=== PATIENT | female | born 1970 | race Caucasian/White ===

== ENCOUNTER → 2016-12-15 | Outpatient (CLI) | payer BC ==
--- NOTE | 2016-12-15 12:48 | MM ---
Reason for exam: screening (asymptomatic). Last mammogram was performed 1 year and 6 months ago. Physical Findings: A clinical breast exam by your physician is recommended on an annual basis and results should be correlated with mammographic findings. MG Screening Mammo w CAD Bilateral CC and MLO view(s) were taken. Prior study comparison: October 11, 2013, bilateral MG screening mammo w CAD. There are scattered fibroglandular densities. There is no discrete abnormality. ASSESSMENT: Negative, BI-RAD 1 RECOMMENDATION: Routine screening mammogram of both breasts in 1 year.
== END | disposition home or self-care (01) ==
LOC: RADMAMWWP 08:56
PROVIDERS: ATTEND Obstetrics & Gynecology
DX: Z12.31 Encounter for screening mammogram for malignant neoplasm of breast (principal)

== ENCOUNTER → 2017-08-31 | Outpatient (CLI) | payer BC ==
[2017-09-01 02:05] LABS: Alternaria alternata IgE <0.10 kU/L; Birch IgE <0.10 kU/L; Cat Epith & Dander IgE <0.10 kU/L; Cockroach IgE <0.10 kU/L; Dermato. farinae IgE <0.10 kU/L; Dog Dander IgE <0.10 kU/L; Elm IgE <0.10 kU/L; Maple (Box Elder) IgE <0.10 kU/L; Oak IgE <0.10 kU/L; Ragweed,Common IgE <0.10 kU/L; Red Top (Bentgrass) IgE <0.10 kU/L
== END | disposition home or self-care (01) ==
LOC: LABWHC1 15:26
PROVIDERS: ATTEND Internal Medicine
DX: J30.9 Allergic rhinitis, unspecified (principal); R05 Cough
CPT/HCPCS: 36415; 82785; 86003

== ENCOUNTER → 2019-03-22 | Outpatient (CLI) | payer OTHER ==
--- NOTE | 2019-03-23 13:32 | MM ---
Reason for exam: screening (asymptomatic). Last mammogram was performed 1 year and 1 month ago. Physical Findings: A clinical breast exam by your physician is recommended on an annual basis and results should be correlated with mammographic findings. MG 3D Screening Mammo W/Cad Bilateral CC and MLO view(s) were taken. Prior study comparison: February 11, 2018, bilateral MG screening mammo w CAD. December 15, 2016, bilateral MG screening mammo w CAD. There are scattered fibroglandular densities. There are benign appearing round calcifications bilaterally. There is no discrete abnormality. ASSESSMENT: Benign, BI-RAD 2 RECOMMENDATION: Routine screening mammogram of both breasts in 1 year.
== END | disposition home or self-care (01) ==
LOC: RADMAMWWP 08:00
PROVIDERS: ATTEND Obstetrics & Gynecology
DX: Z12.31 Encounter for screening mammogram for malignant neoplasm of breast (principal)
CPT/HCPCS: 77063; 77067

== ENCOUNTER → 2020-09-06 | Outpatient (CLI) | payer OTHER ==
--- NOTE | 2020-09-10 08:31 | MM ---
Reason for exam: screening (asymptomatic). Last mammogram was performed 1 year and 6 months ago. Physical Findings: A clinical breast exam by your physician is recommended on an annual basis and results should be correlated with mammographic findings. MG 3D Screening Mammo W/Cad Bilateral CC and MLO view(s) were taken. Prior study comparison: March 22, 2019, bilateral MG 3d screening mammo w/cad. February 11, 2018, bilateral MG screening mammo w CAD. The breast tissue is heterogeneously dense. This may lower the sensitivity of mammography. Superior posterior asymmetric density left MLO appears new and incompletely disperses on 3D. ASSESSMENT: Incomplete: need additional imaging evaluation, BI-RAD 0 RECOMMENDATION: Special view mammogram of the left breast. (3D) If lesion persists on supplemental views, image directed ultrasound is recommended. [facility] will attempt to contact patient to return for supplemental views and ultrasound if indicated.
== END | disposition home or self-care (01) ==
LOC: RADMAMWWP 13:12
PROVIDERS: ATTEND Obstetrics & Gynecology
DX: Z12.31 Encounter for screening mammogram for malignant neoplasm of breast (principal)
CPT/HCPCS: 77063; 77067

== ENCOUNTER → 2020-09-17 | Outpatient (CLI) | payer OTHER ==
--- NOTE | 2020-09-18 10:06 | MM ---
Reason for exam: additional evaluation requested from abnormal screening. Last mammogram was performed less than 1 month ago. Physical Findings: Nurse did not find any significant physical abnormalities on exam. MG 3D Work Up W/Cad LT Spot compression MLO, LM, and XCCL view(s) were taken of the left breast. Prior study comparison: September 06, 2020, bilateral MG 3d screening mammo w/cad. March 22, 2019, bilateral MG 3d screening mammo w/cad. There are scattered fibroglandular densities. No distinct lesion persists on additional views. These results were verbally communicated with the patient and result sheet given to the patient on 09/17/20. ASSESSMENT: Benign, BI-RAD 2 RECOMMENDATION: Return to routine screening mammogram schedule for both breasts.
== END | disposition home or self-care (01) ==
LOC: RADMAMWWP 14:58
PROVIDERS: ATTEND Obstetrics & Gynecology
DX: R92.8 Other abnormal and inconclusive findings on diagnostic imaging of breast (principal)
CPT/HCPCS: 77061; 77065

== ENCOUNTER → 2021-02-19 | Outpatient (CLI) | payer OTHER ==
--- NOTE | 2021-02-20 07:48 | US ---
EXAMINATION TYPE: US axilla RT DATE OF EXAM: 02/19/2021 COMPARISON: NONE CLINICAL HISTORY: I89.1 Lymphangitis. Lymphangitis. Pain in right arm pit. No abnormalities seen at this time within the right axilla. Normal color-flow vascular structures are evident. IMPRESSION: 1. No suspicious ultrasound abnormality right axilla
== END | disposition home or self-care (01) ==
LOC: RADUSWWP 15:59
PROVIDERS: ATTEND Internal Medicine
DX: I89.1 Lymphangitis (principal); M79.601 Pain in right arm

== ENCOUNTER → 2021-10-30 | Outpatient (CLI) | payer OTHER ==
--- NOTE | 2021-11-01 07:59 | BD ---
EXAMINATION TYPE: Axial Bone Density DATE OF EXAM: 10/30/2021 COMPARISON: NONE CLINICAL HISTORY: 51 years year old Female. ICD-10 CODE: Z78.0 ASYMPTOMATIC MENOPAUSAL STATE Height: 60 Weight: 176 FRAX RISK QUESTIONS: Alcohol (3 or more units per day): NO Family History (Parent hip fracture): NO Glucocorticoids (More than 3mos): NO History of Fracture in Adulthood: NO Secondary Osteoporosis: 1. Type 1 Diabetes: NO 2. Hyperthyroidism: NO 3. Menopause before 45: NO 4. Malnutrition: NO 5. Chronic liver disease: NO Rheumatoid Arthritis: NO Current Tobacco Use: NO RISK FACTORS HISTORY OF: Hip Fracture (Right/Left): NO Spine Fracture: YES T6-7 When: 17 YEARS OLD History of Wrist Fracture: NO Surgery to Spine/Hip(right/left)/Wrist (right/left): NO Family History of Osteoporosis: NO Active: YES Diet low in dairy products/other sources of calcium: NO Postmenopausal woman: NO If Premenopausal, do you have irregular periods: YES Take estrogen and/or progesterone medications: NO Lost more than 2 inches in height since high school: NO Frequent falls: NO Poor Health: NO Hyperparathyroidism: NO Adrenal Insufficiency: NO MEDICATIONS: Prednisone or other steroids: NO Thyroid Medications: NO Osteoporosis Medications: NO Additional Medications: REFLUX MEDS, BP MEDS, DEPRESSION MEDS, VIT D, MULTI VIT. Additional History: EXAM MEASUREMENTS: Bone mineral densitometry was performed using the [employer] System. Bone mineral density as measured about the Lumbar spine is: ----- L1-L4(G/cm2): 1.170 T Score Values are as follows: ----- L1: 0.1 ----- L2: -0.1 ----- L3: -0.8 ----- L4: 0.3 ----- L1-L4: -0.1 BASELINE STUDY Bone mineral density about the R hip (g/cm2): 0.996 Bone mineral density about the L hip (g/cm2): 1.066 T Score values are as follows: -----R Neck:-0.3 -----L Neck: 0.2 -----R Total: 0.8 -----L Total: 1.0 BASELINE STUDY FRAX%s: The graph provided illustrates a 3.9% chance for a major osteoporotic fx and a 0.1% chance fo r the hips probability for fx in 10 years time. IMPRESSION: Normal (Values between +1 and -1 indicate normal bone mass). Consider repeating this study in 5 year s or sooner if there is some new clinical indication. NOTE: T-SCORE=SD OF THE YOUNG ADULT MEAN.
== END | disposition home or self-care (01) ==
LOC: RADBDWWP 16:07
PROVIDERS: ATTEND Obstetrics & Gynecology
DX: Z78.0 Asymptomatic menopausal state (principal)
CPT/HCPCS: 77080

== ENCOUNTER → 2021-11-21 | Outpatient (CLI) | payer OTHER ==
[2021-11-21 13:01] VITALS: BP 155/92; PULSE 66; RESP 16; TEMP 98.4
--- NOTE | 2021-11-21 13:20 | P.GSHP ---
History of Present Illness H&P Date: 11/21/21 Chief Complaint: right breast and axillary pain Olga is a 51 year old white female seen in consultation for Dr. Shabazz with a complaint of persistant pain in her right axilla following her COVID booster. She does also complain of a pinched nerve in her neck for which she had physical therapy. It seems to be improving. [place] [address]. This was benign BIRADS 2. [place] [address] which revealed benign-appearing right axillary lymph node. She is not complaining of any nipple discharge or skin changes. She is not complaining of any discrete lumps masses or nodules in either breast. She has not had any recent trauma or infection the breast. The discomfort has improved over the last several weeks. CAffine: 1 cup/day Nicotine: none hormones: BCP: when younger about 10 years chocolate: occasional Family history: mother: pancreatic cancer father: throat cancer paternal grandfather: cancer ?type Hormonal History: menarche: 12 breast fed: no, age at : 31 menpause: just starting: LMP spotting last month BCP: 10 years in the past Surgical history: Uterine ablation tubal Blepharoplasty Medical History: none broken back at 17 HTN Social History: nicotine: Patient wasn't never smoker but both of her parents smoked was she was growing up Alcohol:none drugs: none - Constitutional Constitutional: Denies chills, Denies fever - EENT Eyes: denies blurred vision, denies pain Ears: deny: decreased hearing, tinnitus Ears, nose, mouth and throat: Denies headache, Denies sore throat - Breasts Breasts: bilateral: as per HPI - Cardiovascular Cardiovascular: Denies chest pain, Denies shortness of breath - Respiratory Respiratory: Denies cough, Denies 7 - Gastrointestinal Gastrointestinal: Denies abdominal pain, Denies diarrhea, Denies nausea, Denies vomiting - Genitourinary (Female) Genitourinary: Reports kidney stones, Denies dysuria, Denies hematuria - Menstruation Comment: perimenopausal - Musculoskeletal Musculoskeletal: Reports myalgias - Integumentary Integumentary: Denies pruritus, Denies rash - Neurological Neurological: Denies numbness, Denies weakness - Psychiatric Psychiatric: Denies anxiety, Denies depression - Endocrine Endocrine: Denies fatigue, Denies weight change - Hematologic/Lymphatic Comment: none - Allergic/Immunologic Allergic/Immunologic: Reports seasonal allergies Past Medical History Past Medical History: GERD/Reflux, Hypertension History of Any Multi-Drug Resistant Organisms: None Reported Past Surgical History: Tubal Ligation Additional Past Surgical History / Comment(s): UTERINE ABLATION Past Anesthesia/Blood Transfusion Reactions: No Reported Reaction Past Psychological History: Anxiety Smoking Status: Never smoker Past Alcohol Use History: Occasional Past Drug Use History: None Reported - Past Family History Mother Family Medical History: Cancer Additional Family Medical History / Comment(s): LUNG AND PANCREATIC Father Family Medical History: Cancer Additional Family Medical History / Comment(s): ESOPHAGEAL Medications and Allergies Home Medications Medication Instructions Recorded Confirmed Type ALPRAZolam [Xanax] 0.25 mg PO HS PRN 01/30/15 11/21/21 History Omeprazole [PriLOSEC] 20 mg PO DAILY 01/30/15 11/21/21 History atenoloL [Tenormin] 50 mg PO DAILY 01/30/15 11/21/21 History Cetirizine HCl [Zyrtec] 0.5 mg PO DAILY 11/21/21 11/21/21 History buPROPion [Wellbutrin] 150 mg PO DAILY 11/21/21 11/21/21 History Allergies Allergy/AdvReac Type Severity Reaction Status Date / Time Penicillins Allergy Rash/Hives Verified 11/21/21 13:02 Sulfa (Sulfonamide Allergy Rash/Hives/ Verified 11/21/21 13:02 Antibiotics) DIFFICULTY WITH SWALLOWING Surgical - Exam Vital Signs Temp Pulse Resp BP Pulse Ox 98.4 F 66 16 155/92 98 11/21/21 12:57 11/21/21 12:57 11/21/21 12:57 11/21/21 12:57 11/21/21 12:57 BMI: 34.8 - General no distress - Eyes normal ocular movement - Neck trachea midline - Respiratory normal respiratory effort, clear to auscultation - Cardiovascular Rhythm: regular Heart Sounds: normal: S1, S2 - Abdomen Abdomen: soft - Integumentary normal turgor - Neurologic no disoriented, no combative - Musculoskeletal normal gait, normal posture - Psychiatric oriented to time, oriented to person, oriented to place, speech is normal, memory intact Breast Exam: BRA: 38C inspection: bilateral grade 3 ptosis palpation: right breast: Multi-positional exam no dominant masses or nodules of concern Right axilla: No adenopathy of concern Left breast: Multi-positional exam fibrocystic changes no dominant masses or nodules of concern Left axilla: No adenopathy of concern Results Mammogram and ultrasound results reviewed Assessment and Plan Assessment: Impression: Right axillary/chest wall pain following COVID booster; this has improved following physical therapy No radiographic abnormalities in the right breast or axilla of concern Nothing palpable on physical exam of concern and right breast or axilla Plan: Repeat bilateral mammogram in 1 year with physician exam at that time Continue physical therapy if the pain continues to be happy to see patient back again however at this time there is nothing which would warrant interventional biopsy Cc: Dr. Shabazz, Dr. Daily
== END ==
LOC: WWCWWP 12:47
PROVIDERS: ATTEND Surgery
DX: R07.89 Other chest pain (principal); I10 Essential (primary) hypertension; K21.9 Gastro-esophageal reflux disease without esophagitis; F41.9 Anxiety disorder, unspecified; Z88.0 Allergy status to penicillin; Z88.2 Allergy status to sulfonamides; Z79.899 Other long term (current) drug therapy

== ENCOUNTER → 2022-01-15 | Outpatient (CLI) | payer BC ==
--- NOTE | 2022-01-16 07:48 | XR ---
EXAMINATION TYPE: XR Hip Complete 2 views RT DATE OF EXAM: 01/15/2022 Comparison: None Clinical History: 51-year-old female M25.551,M54.31 Findings: Hip joint space is maintained. There may be mild degenerative spurring at the right SI joint. Right-s ided pelvic fluid ligaments. No acute fracture, subluxation, dislocation seen. Impression: There may be mild degenerative spurring at the right SI joint. Hip joint space is maintained. No acut e osseous abnormality seen.
--- NOTE | 2022-01-16 07:49 | XR ---
EXAMINATION TYPE: XR lumbosacral spine 5 views DATE OF EXAM: 01/15/2022 Comparison: None Clinical History: 51 year-old female right-sided pain, chronic lower back pain Findings: 5 lumbar type vertebral bodies. There is hypertrophic facet arthropathy in the lower lumbar spine. So mewhat short appearance to the pedicles on the lateral view could reflect underlying congenital spina l canal stenosis. Degenerative grade 1 anterolisthesis L4-L5. Trace grade 1 retrolisthesis L1-L2. Mil d degenerative disc disease with small Schmorl's nodes. Impression: 1. Hypertrophic facet arthropathy mid to lower lumbar spine with degenerative grade 1 anterolisthesis L4-L5. 2. Additional trace grade 1 retrolisthesis L1-L2. 3. Somewhat short appearance to the pedicles in the lower lumbar spine on the lateral view could refl ect an underlying congenital spinal canal narrowing. 4. No vertebral compression collapse.
== END | disposition home or self-care (01) ==
LOC: RADMRIMAIN 17:33
PROVIDERS: ATTEND Internal Medicine
DX: M43.16 Spondylolisthesis, lumbar region (principal); M99.73 Connective tissue and disc stenosis of intervertebral foramina of lumbar region; M47.816 Spondylosis without myelopathy or radiculopathy, lumbar region
CPT/HCPCS: 72110; 73502

== ENCOUNTER → 2022-08-29 | Outpatient (CLI) | payer BC ==
[2022-08-29 09:19] VITALS: BP 172/97; PULSE 62; RESP 17; TEMP 98.4
--- NOTE | 2022-08-29 09:28 | P.PN ---
Subjective Progress Note Date: 08/29/22 Principal diagnosis: right axillary pain right breast and axillary pain Olga is a 52-year-old white female seen initially in consultation for Dr. Shabazz with a complaint of pain in her right axilla following her Covid booster. She also complained of a pinched nerve in her neck for which she had physical therapy. That seemed to be improving. [place] [id number]. This was benign BIRADS 2. She then had an ultrasound of the right axilla on which revealed benign-appearing right axillary lymph nodes. The patient at this time is intermittent. There is a 3 when it is bothering her. It seems to radiate at times down onto the chest wall. At the age of 17 she had a fracture of her back between her shoulder blades. She works at a desk all day and there is some thought that the pain may be radiating from the area of prior fracture towards the area of the axilla. Patient does not feel any new lumps masses or nodules of concern in either breast or under her arms. CAffine: 1 cup/day Nicotine: none hormones: BCP: when younger about 10 years chocolate: occasional Family history: mother: pancreatic cancer father: throat cancer paternal grandfather: cancer ?type Hormonal History: menarche: 12 breast fed: no, age at : 31 menpause: just starting: LMP spotting last month BCP: 10 years in the past Surgical history: Uterine ablation tubal Blepharoplasty Medical History: broken back at 17 HTN Social History: nicotine: Patient wasn't never smoker but both of her parents smoked was she was growing up Alcohol:none drugs: none - Constitutional Constitutional: Denies chills, Denies fever - EENT Eyes: denies blurred vision, denies pain Ears: deny: decreased hearing, tinnitus Ears, nose, mouth and throat: Denies headache, Denies sore throat - Breasts Breasts: bilateral: as per HPI - Cardiovascular Cardiovascular: Denies chest pain, Denies shortness of breath - Respiratory Respiratory: Denies cough - Gastrointestinal Gastrointestinal: Denies abdominal pain, Denies diarrhea, Denies nausea, Denies vomiting - Genitourinary (Female) Genitourinary: Reports kidney stones, Denies dysuria, Denies hematuria - Menstruation Comment: perimenopausal - Musculoskeletal Musculoskeletal: Reports myalgias - Integumentary Integumentary: Denies pruritus, Denies rash - Neurological Neurological: Denies numbness, Denies weakness - Psychiatric Psychiatric: Denies anxiety, Denies depression - Endocrine Endocrine: Denies fatigue, Denies weight change - Hematologic/Lymphatic Comment: none - Allergic/Immunologic Allergic/Immunologic: Reports seasonal allergies Past Medical History Past Medical History: GERD/Reflux, Hypertension History of Any Multi-Drug Resistant Organisms: None Reported Past Surgical History: Tubal Ligation Additional Past Surgical History / Comment(s): UTERINE ABLATION Past Anesthesia/Blood Transfusion Reactions: No Reported Reaction Past Psychological History: Anxiety Smoking Status: Never smoker Past Alcohol Use History: Occasional Past Drug Use History: None Reported - Past Family History Mother Family Medical History: Cancer Additional Family Medical History / Comment(s): LUNG AND PANCREATIC Father Family Medical History: Cancer Additional Family Medical History / Comment(s): ESOPHAGEAL Medications and Allergies Home Medications Medication Instructions Recorded Confirmed Type ALPRAZolam [Xanax] 0.25 mg PO HS PRN 01/30/15 11/21/21 History Omeprazole [PriLOSEC] 20 mg PO DAILY 01/30/15 11/21/21 History atenoloL [Tenormin] 50 mg PO DAILY 01/30/15 11/21/21 History Cetirizine HCl [Zyrtec] 0.5 mg PO DAILY 11/21/21 11/21/21 History buPROPion [Wellbutrin] 150 mg PO DAILY 11/21/21 11/21/21 History Allergies Allergy/AdvReac Type Severity Reaction Status Date / Time Penicillins Allergy Rash/Hives Verified 11/21/21 13:02 Sulfa (Sulfonamide Allergy Rash/Hives/ Verified 11/21/21 13:02 Antibiotics) DIFFICULTY WITH SWALLOWING Objective - Vital Signs Vital signs: Intake & Output 08/28/22 08/29/22 08/29/22 18:59 06:59 18:59 Weight 78.018 kg - Constitutional General appearance: Present: cooperative - EENT Eyes: Present: EOMI ENT: Present: hearing grossly normal - Neck Neck: Present: normal ROM - Respiratory Respiratory: bilateral: CTA - Cardiovascular Rhythm: regular Heart sounds: normal: S1, S2 - Gastrointestinal General gastrointestinal: Present: soft - Integumentary Integumentary: Present: normal turgor - Musculoskeletal Musculoskeletal: Present: gait normal - Psychiatric Psychiatric: Present: A&O x's 3, appropriate affect, intact judgment & insight - Additional findings Additional findings: Breast Exam: BRA: 38C inspection: bilateral grade 3 ptosis palpation: right breast: Multi-positional exam no dominant masses or nodules of concern Right axilla: No adenopathy of concern Left breast: Multi-positional exam fibrocystic changes no dominant masses or nodules of concern Left axilla: No adenopathy of concern On examination of the right axilla there is tenderness to the muscle itself which appears to be musculoskeletal in nature possibly be radiating from her mid back. Assessment and Plan Assessment: Impression: We have discussed genetic testing and she is going to look into this Fibrocystic breast changes bilateral Right axillary discomfort has decreased and appears to be musculoskeletal in nature CC: Bilateral mammogram and repeat right axillary ultrasound and Patito with appointment at that time Genetic testing Follow-up sooner any questions or concerns Cc: Dr. Daily
== END ==
LOC: WWCWWP 08:41
PROVIDERS: ATTEND Surgery
DX: N60.11 Diffuse cystic mastopathy of right breast (principal); N60.12 Diffuse cystic mastopathy of left breast; I10 Essential (primary) hypertension; G93.89 Other specified disorders of brain; Z88.0 Allergy status to penicillin; Z88.2 Allergy status to sulfonamides; K21.9 Gastro-esophageal reflux disease without esophagitis; Z88.1 Allergy status to other antibiotic agents; Z80.0 Family history of malignant neoplasm of digestive organs; Z80.1 Family history of malignant neoplasm of trachea, bronchus and lung

== ENCOUNTER → 2022-10-20 | Outpatient (CLI) | payer BC ==
--- NOTE | 2022-10-20 09:38 | MM ---
Reason for Exam: Clinical finding. Last screening mammogram was performed 12 month(s) ago. Patient History: Menarche at age 12. First Full-Term at age 30. Late child-bearing (after 30). Postmenopausal. Risk Values: Cassidy 5 year model risk: 1.5%. NCI Lifetime model risk: 11.8%. Prior Study Comparison: 06/06/2015 Bilateral Screening Mammogram, [facility]. 12/15/2016 Bilateral Screening Mammogram, [facility]. 02/11/2018 Bilateral Screening Mammogram, [facility]. 03/22/2019 Bilateral Screening Mammogram, [facility]. 09/06/2020 Bilateral Screening Mammogram, [facility]. 09/17/2020 Left Diagnostic Mammogram, [facility]. 10/21/2021 Bilateral MG 3D diag mammo w/cad [facility], [facility]. Tissue Density: There are scattered fibroglandular densities. Findings: Analyzed By CAD. Pattern appears stable. There is a new density within the upper outer mid left breast. Under compression this area appears to disperse normally. Suspicious abnormality on the mediolateral not evident. Right breast appears stable. Focal asymmetry within the anterior right breast appears less suspicious on the current exam. An additional asymmetric density within the midportion of the right breast likewise appears smaller. Patient is scheduled for ultrasound right breast. No suspicious groups of microcalcifications, spiculated or lobular masses, architectural distortion or other secondary signs of malignancy are mammographically apparent. Overall Assessment: Benign, BI-RAD 2 Management: Screening Mammogram of both breasts in 1 year. A negative mammogram report should not preclude additional follow up of suspicious palpable abnormalities. Patient should continue monthly self breast exam. A clinical breast exam by your physician is recommended on an annual basis and results should be correlated with mammographic findings. Electronically signed and approved by: Elia Chapa D.O. Radiologis
--- NOTE | 2022-10-20 09:38 | USB ---
Reason for Exam: Clinical finding. Patient History: Menarche at age 12. First Full-Term at age 30. Late child-bearing (after 30). Postmenopausal. Risk Values: Cassidy 5 year model risk: 1.5%. NCI Lifetime model risk: 11.8%. Technique: Method: Targeted. Prior Study Comparison: 09/06/2020 Bilateral Screening Mammogram, [facility]. 09/17/2020 Left Diagnostic Mammogram, [facility]. 10/21/2021 Bilateral MG 3D diag mammo w/cad [facility], [facility]. Findings: The axilla of the left breast was scanned. No solid or cystic masses are identified. A benign stable appearing lymph node is present within the right axilla measuring 1.1 x 1.2 x 0.7 cm. No thickened cortex is evident. Overall Assessment: Benign, BI-RAD 2 Management: Screening Mammogram of both breasts in 1 year. A clinical breast exam by your physician is recommended on an annual basis and results should be correlated with mammographic findings. This exam should not preclude additional follow-up of suspicious palpable abnormalities. Results were given to the patient verbally at the time of exam. Electronically signed and approved by: Elia Chapa D.O. Radiologis
== END | disposition home or self-care (01) ==
LOC: RADMAMWWP 08:27
PROVIDERS: ATTEND Surgery
DX: R92.8 Other abnormal and inconclusive findings on diagnostic imaging of breast (principal); Z78.0 Asymptomatic menopausal state
CPT/HCPCS: 77062; 77066

== ENCOUNTER → 2022-10-23 | Outpatient (CLI) | payer BC ==
[2022-10-23 10:33] VITALS: BP 176/84; PULSE 57; RESP 12; TEMP 97.7
--- NOTE | 2022-10-23 10:51 | P.PN ---
Subjective Progress Note Date: 10/23/22 Principal diagnosis: Results of mammogram and ultrasound from [address]/fibrocystic breast changes right axillary pain right axillary pain right breast and axillary pain Olga is a 52-year-old white female seen initially in consultation for Dr. Shabazz with a complaint of pain in her right axilla following her Covid booster. She also complained of a pinched nerve in her neck for which she had physical therapy. That seemed to be improving. She had a bilateral screening mammogram [place] [address]. This was benign BIRADS 2. [place] [address] which revealed benign-appearing right axillary lymph nodes. The patient at this time is intermittent. There is a 3 when it is bothering her. It seems to radiate at times down onto the chest wall. At the age of 17 she had a fracture of her back between her shoulder blades. She works at a desk all day and there is some thought that the pain may be radiating from the area of prior fracture towards the area of the axilla. Patient does not feel any new lumps masses or nodules of concern in either breast or under her arms. The patient had a bilateral mammogram and left breast ultrasound on 10-20-22 which was BIRAD 2. The pain has improved in her axilla. It is intermittent in nature. At this time we [place] gone [place] [address]. She has declined an examination as it was just done on . CAffine: 1 cup/day Nicotine: none hormones: BCP: when younger about 10 years chocolate: occasional Family history: mother: pancreatic cancer father: throat cancer paternal grandfather: cancer ?type Hormonal History: menarche: 12 breast fed: no, age at : 31 menpause: just starting: LMP spotting last month BCP: 10 years in the past Surgical history: Uterine ablation tubal Blepharoplasty Medical History: broken back at 17 HTN Social History: nicotine: Patient wasn't never smoker but both of her parents smoked was she was growing up Alcohol:none drugs: none - Constitutional Constitutional: Denies chills, Denies fever - EENT Eyes: denies blurred vision, denies pain Ears: deny: decreased hearing, tinnitus Ears, nose, mouth and throat: Denies headache, Denies sore throat - Breasts Breasts: bilateral: as per HPI - Cardiovascular Cardiovascular: Denies chest pain, Denies shortness of breath - Respiratory Respiratory: Denies cough - Gastrointestinal Gastrointestinal: Denies abdominal pain, Denies diarrhea, Denies nausea, Denies vomiting - Genitourinary (Female) Genitourinary: Reports kidney stones, Denies dysuria, Denies hematuria - Menstruation Comment: perimenopausal - Musculoskeletal Musculoskeletal: Reports myalgias - Integumentary Integumentary: Denies pruritus, Denies rash - Neurological Neurological: Denies numbness, Denies weakness - Psychiatric Psychiatric: Denies anxiety, Denies depression - Endocrine Endocrine: Denies fatigue, Denies weight change - Hematologic/Lymphatic Comment: none - Allergic/Immunologic Allergic/Immunologic: Reports seasonal allergies Past Medical History Past Medical History: GERD/Reflux, Hypertension History of Any Multi-Drug Resistant Organisms: None Reported Past Surgical History: Tubal Ligation Additional Past Surgical History / Comment(s): UTERINE ABLATION Past Anesthesia/Blood Transfusion Reactions: No Reported Reaction Past Psychological History: Anxiety Smoking Status: Never smoker Past Alcohol Use History: Occasional Past Drug Use History: None Reported - Past Family History Mother Family Medical History: Cancer Additional Family Medical History / Comment(s): LUNG AND PANCREATIC Father Family Medical History: Cancer Additional Family Medical History / Comment(s): ESOPHAGEAL Medications and Allergies Home Medications Medication Instructions Recorded Confirmed Type ALPRAZolam [Xanax] 0.25 mg PO HS PRN 01/30/15 11/21/21 History Omeprazole [PriLOSEC] 20 mg PO DAILY 01/30/15 11/21/21 History atenoloL [Tenormin] 50 mg PO DAILY 01/30/15 11/21/21 History Cetirizine HCl [Zyrtec] 0.5 mg PO DAILY 11/21/21 11/21/21 History buPROPion [Wellbutrin] 150 mg PO DAILY 11/21/21 11/21/21 History Allergies Allergy/AdvReac Type Severity Reaction Status Date / Time Penicillins Allergy Rash/Hives Verified 11/21/21 13:02 Sulfa (Sulfonamide Allergy Rash/Hives/ Verified 11/21/21 13:02 Antibiotics) DIFFICULTY WITH SWALLOWING Objective - Vital Signs Vital signs: Vital Signs Temp 97.7 F 10/23/22 10:27 Pulse 57 L 10/23/22 10:27 Resp 12 10/23/22 10:27 BP 176/84 10/23/22 10:27 Pulse Ox FiO2 Intake & Output 10/22/22 10/23/22 10/23/22 18:59 06:59 18:59 Weight 75.75 kg Assessment and Plan Assessment: Impression: broken back at 17 HTN right axillary pain fibrocystic breast pain Bilateral [place] [address] BIRAD 2 Plan; Bilateral mammogram in 1 year with physician exam at that time Patient to follow up sooner any questions or concerns CC: Dr. Daily
== END ==
LOC: WWCWWP 10:21
PROVIDERS: ATTEND Surgery
DX: N60.11 Diffuse cystic mastopathy of right breast (principal); N60.12 Diffuse cystic mastopathy of left breast; I10 Essential (primary) hypertension; Q83.1 Accessory breast; Z88.0 Allergy status to penicillin; Z88.2 Allergy status to sulfonamides; K21.9 Gastro-esophageal reflux disease without esophagitis

== ENCOUNTER → 2023-08-08 | Outpatient (CLI) | payer BC ==
[2023-08-08 13:21] LABS: Basophils # (A) 0.04 X 10*3/uL (0.00-0.10); Basophils % (A) 0.7 %; Eosinophils # (A) 0.19 X 10*3/uL (0.04-0.35); Eosinophils % (A) 3.3 %; HCT 41.7 % (37.2-46.3); HGB 14.2 g/dL (12.0-15.0); Lymphocytes # (A) 2.19 X 10*3/uL (0.90-5.00); Lymphocytes % (A) 37.6 %; MCH 30.8 pg (27.0-32.0); MCHC 34.1 g/dL (32.0-37.0); MCV 90.5 FL (80.0-97.0); Mean Platelet Volume 10.5 FL (9.5-12.2); Monocytes # (A) 0.35 X 10*3/uL (0.20-1.00); NRBC Per 100 WBC 0 X 10*3/uL (0.00-0.01); Neutrophils # (A) 3.04 X 10*3/uL (1.80-7.70); Neutrophils % (A) 52.2 %; Platelet Count 218 X 10*3/uL (140-440); RBC 4.61 X 10*6/uL (4.10-5.20); RDW 12.4 % (11.5-14.5); WBC 5.82 X 10*3/uL (4.50-10.00)
[2023-08-08 13:30] LABS: ALT 48 U/L (8-44); AST 29 U/L (13-35); Albumin 4.9 g/dL (3.8-4.9); Albumin/Globulin Ratio 1.81 Ratio (1.60-3.17); Alkaline Phosphatase 137 U/L (41-126); BUN/Creat Ratio 19.17 Ratio (12.00-20.00); Blood Urea Nitrogen 11.5 mg/dL (9.0-27.0); Calcium 10.3 mg/dL (8.7-10.3); Carbon Dioxide 25.6 mmol/L (21.6-31.8); Chloride 106 mmol/L (96-109); Chol/HDL Ratio 2.37 Ratio; Globulin 2.7 g/dL (1.6-3.3); Glucose 85 mg/dL (70-110); LDL Cholesterol,Calculated 77.2 mg/dL (0.0-131.0); Potassium 4.4 mmol/L (3.5-5.5); Sodium 143 mmol/L (135-145); Total Bilirubin 0.3 mg/dL (0.3-1.2); Total Protein 7.6 g/dL (6.2-8.2); VLDL Calculation 13.14 mg/dL (5.00-40.00)
== END | disposition home or self-care (01) ==
LOC: LABWHC1 09:42
PROVIDERS: ATTEND Internal Medicine
DX: I10 Essential (primary) hypertension (principal); E78.00 Pure hypercholesterolemia, unspecified
CPT/HCPCS: 36415; 80053; 80061; 85025

== ENCOUNTER → 2023-10-22 | Outpatient (CLI) | payer BC ==
--- NOTE | 2023-10-22 13:52 | MM ---
Reason for Exam: Follow-up at short interval from prior study. Last screening mammogram was performed 12 month(s) ago. Patient History: Menarche at age 12. First Full-Term at age 30. Late child-bearing (after 30). Postmenopausal. Risk Values: Cassidy 5 year model risk: 1.5%. NCI Lifetime model risk: 11.6%. Tissue Density: There are scattered areas of fibroglandular density. Findings: Analyzed By CAD. Bilateral areas of asymmetric density are unchanged. No significant change from prior exams. Overall Assessment: Benign, BI-RAD 2 Management: Screening Mammogram of both breasts in 1 year. . Results were given to the patient verbally at the time of exam. Patient should continue monthly self-breast exams. A clinical breast exam by your physician is recommended on an annual basis. This exam should not preclude additional follow-up of suspicious palpable abnormalities. Note on Cassidy scores and lifetime risk: 1. A Cassidy score greater than 3% is considered moderate risk. If this is the case, consider specialist referral to assess eligibility for a risk reducing agent. 2. If overall lifetime risk for the development of breast cancer is 20% or higher, the patient may qualify for future screening with alternating mammogram and breast MRI. Electronically signed and approved by: Bryanna Kramer M.D. Radiologist
== END | disposition home or self-care (01) ==
LOC: RADMAMWWP 12:50
PROVIDERS: ATTEND Surgery
DX: R92.323 Mammographic fibroglandular density, bilateral breasts (principal); Z78.0 Asymptomatic menopausal state
CPT/HCPCS: 77062; 77066

== ENCOUNTER → 2023-10-29 | Outpatient (CLI) | payer BC ==
--- NOTE | 2023-10-29 11:26 | P.PN ---
Subjective Progress Note Date: 10/29/23 Principal diagnosis: fibrocystoc breast changes 10-29-23 Principal diagnosis: Results of mammogram and ultrasound from /fibrocystic breast changes right axillary pain Olga is a 52-year-old white female seen initially in consultation for Dr. Shabazz with a complaint of pain in her right axilla following her Covid booster. She also complained of a pinched nerve in her neck for which she had physical therapy. That seemed to be improving. She had a bilateral screening mammogram and . This was benign BIRADS 2. She then had an ultrasound of the right axilla on which revealed benign-appearing right axillary lymph nodes. The pain at this time is intermittent. There is a 3 when it is bothering her. It seems to radiate at times down onto the chest wall. At the age of 17 she had a fracture of her back between her shoulder blades. She works at a desk all day and there is some thought that the pain may be radiating from the area of prior fracture towards the area of the axilla. Patient does not feel any new lumps masses or nodules of concern in either breast or under her arms. The patient had a bilateral mammogram on 10-22-23 which was BIRAD 2. This was personally reviewed. The pain has improved in her right axilla. It is intermittent in nature, and appears to be associated with exercise. It has not gotten any worse. The patient does have some concerns regarding her most recent mammogram she was told she had a spot in the left breast which she is white which they are watching. CAffine: 1 cup/day Nicotine: none hormones: BCP: when younger about 10 years chocolate: occasional Family history: mother: pancreatic cancer father: throat cancer paternal grandfather: cancer ?type Hormonal History: menarche: 12 breast fed: no, age at : 31 menpause: just starting: LMP spotting last month BCP: 10 years in the past Surgical history: Uterine ablation tubal Blepharoplasty gallbladder Medical History: broken back at 17 HTN Social History: nicotine: Patient wasn't never smoker but both of her parents smoked was she was growing up Alcohol:none drugs: none - Constitutional Constitutional: Denies chills, Denies fever - EENT Eyes: denies blurred vision, denies pain Ears: deny: decreased hearing, tinnitus Ears, nose, mouth and throat: Denies headache, Denies sore throat - Breasts Breasts: bilateral: as per HPI - Cardiovascular Cardiovascular: Denies chest pain, Denies shortness of breath - Respiratory Respiratory: Denies cough - Gastrointestinal Gastrointestinal: Denies abdominal pain, Denies diarrhea, Denies nausea, Denies vomiting - Genitourinary (Female) Genitourinary: Reports kidney stones, Denies dysuria, Denies hematuria - Menstruation Comment: perimenopausal - Musculoskeletal Musculoskeletal: Reports myalgias - Integumentary Integumentary: Denies pruritus, Denies rash - Neurological Neurological: Denies numbness, Denies weakness - Psychiatric Psychiatric: Denies anxiety, Denies depression - Endocrine Endocrine: Denies fatigue, Denies weight change - Hematologic/Lymphatic Comment: none - Allergic/Immunologic Allergic/Immunologic: Reports seasonal allergies Past Medical History Past Medical History: GERD/Reflux, Hypertension History of Any Multi-Drug Resistant Organisms: None Reported Past Surgical History: Tubal Ligation Additional Past Surgical History / Comment(s): UTERINE ABLATION Past Anesthesia/Blood Transfusion Reactions: No Reported Reaction Past Psychological History: Anxiety Smoking Status: Never smoker Past Alcohol Use History: Occasional Past Drug Use History: None Reported - Past Family History Mother Family Medical History: Cancer Additional Family Medical History / Comment(s): LUNG AND PANCREATIC Father Family Medical History: Cancer Additional Family Medical History / Comment(s): ESOPHAGEAL Medications and Allergies Home Medications Medication Instructions Recorded Confirmed Type ALPRAZolam [Xanax] 0.25 mg PO HS PRN 01/30/15 11/21/21 History Omeprazole [PriLOSEC] 20 mg PO DAILY 01/30/15 11/21/21 History atenoloL [Tenormin] 50 mg PO DAILY 01/30/15 11/21/21 History Cetirizine HCl [Zyrtec] 0.5 mg PO DAILY 11/21/21 11/21/21 History buPROPion [Wellbutrin] 150 mg PO DAILY 11/21/21 11/21/21 History Allergies Allergy/AdvReac Type Severity Reaction Status Date / Time Penicillins Allergy Rash/Hives Verified 11/21/21 13:02 Sulfa (Sulfonamide Allergy Rash/Hives/ Verified 11/21/21 13:02 Antibiotics) DIFFICULTY WITH SWALLOWING Objective - Constitutional General appearance: Present: cooperative - EENT Eyes: Present: EOMI ENT: Present: hearing grossly normal - Neck Neck: Present: normal ROM - Respiratory Respiratory: bilateral: CTA - Cardiovascular Heart sounds: normal: S1, S2 - Musculoskeletal Musculoskeletal: Present: gait normal - Psychiatric Psychiatric: Present: A&O x's 3, appropriate affect, intact judgment & insight - Additional findings Additional findings: Breast Exam: BRA: 38C Inspection: Bilateral grade 2/3 ptosis Palpation: Right breast: Multi positional exam no dominant masses or nodules of concern dense breast tissue fibrocystic changes Right axilla: No adenopathy of concern Left breast: Multi positional exam no dominant masses or nodules of concern/dense breast tissue fibrocystic changes Left axilla: No adenopathy of concern Assessment and Plan Assessment: Impression: broken back at 17 HTN right axillary pain fibrocystic breast pain Bilateral mammogram and right breast and axillary ultrasound on 516-24 BIRAD 2, personally reviewed Plan; Bilateral mammogram in October 2024 with physician exam at that time Patient to follow up sooner any questions or concerns At this time there is nothing on physical exam or radiographically to warrant interventional biopsy CC: Dr. Daily
[2023-10-29 12:10] VITALS: BP 163/95; PULSE 73; RESP 16; TEMP 97.9
== END ==
LOC: WWCWWP 10:32
PROVIDERS: ATTEND Surgery
DX: Z12.31 Encounter for screening mammogram for malignant neoplasm of breast (principal); S32.009A Unspecified fracture of unspecified lumbar vertebra, initial encounter for closed fracture; N60.11 Diffuse cystic mastopathy of right breast; N60.12 Diffuse cystic mastopathy of left breast; N64.4 Mastodynia; I10 Essential (primary) hypertension; M79.621 Pain in right upper arm; Z88.0 Allergy status to penicillin; Z88.2 Allergy status to sulfonamides; Z79.899 Other long term (current) drug therapy; Z77.22 Contact with and (suspected) exposure to environmental tobacco smoke (acute) (chronic); X58.XXXA Exposure to other specified factors, initial encounter

== ENCOUNTER → 2024-10-24 | Outpatient (CLI) | payer BC ==
--- NOTE | 2024-10-24 10:38 | MM ---
Reason for Exam: Screening (asymptomatic). Last screening mammogram was performed 12 month(s) ago. Patient History: Menarche at age 12. First Full-Term at age 30. Late child-bearing (after 30). Postmenopausal. Risk Values: Cassidy 5 year model risk: 1.6%. NCI Lifetime model risk: 11.4%. Prior Study Comparison: 10/21/2021 Bilateral MG 3D diag mammo w/cad [facility]. 10/20/2022 Bilateral MG 3D diag mammo w/cad [facility]. 10/22/2023 Bilateral MG 3D diag mammo w/cad [facility], [facility]. Tissue Density: The breasts are heterogeneously dense, which may obscure small masses. Findings: Analyzed By CAD. Right breast: There is no suspicious group of microcalcifications or new suspicious mass. Left breast: There is no suspicious group of microcalcifications or new suspicious mass. Overall Assessment: Negative, BI-RAD 1 Management: Screening Mammogram of both breasts in [address] [facility] will attempt to contact patient to return for supplemental views and ultrasound if indicated. Patient should continue monthly self-breast exams. A clinical breast exam by your physician is recommended on an annual basis. This exam should not preclude additional follow-up of suspicious palpable abnormalities. Note on Cassidy scores and lifetime risk: 1. A Cassidy score greater than 3% is considered moderate risk. If this is the case, consider specialist referral to assess eligibility for a risk reducing agent. 2. If overall lifetime risk for the development of breast cancer is 20% or higher, the patient may qualify for future screening with alternating mammogram and breast MRI. [facility], , 10/24/2024 10:35 AM. Electronically signed and approved by: Osvaldo Dover DO
== END | disposition home or self-care (01) ==
LOC: RADMAMWWP 09:40
PROVIDERS: ATTEND Obstetrics & Gynecology
DX: Z12.31 Encounter for screening mammogram for malignant neoplasm of breast (principal); R92.333 Mammographic heterogeneous density, bilateral breasts; Z78.0 Asymptomatic menopausal state
CPT/HCPCS: 77063; 77067